=== PATIENT | female | born 1960 | race Caucasian/White ===

== ENCOUNTER 2025-01-01 10:05 | Emergency (ER) | payer MEDICARE, SELFPAY ==
[2025-01-01 10:17] VITALS: BP 150/100; PULSE 93; RESP 16; TEMP 36.6; O2SAT 100
[2025-01-01 10:21] LABS: Glucose Point of Care > 500 mg/dl (65-105)
--- OUTSIDE RECORDS SUMMARY | 2025-01-01 11:10 | XMS_ITS | Encounter Summary ---
Author Organization [facility] Address [address] [place] [address] Care Team Providers Care Hand Fabric Cutter Name Role Phone Nadine Walls PA-C Primary Care Provider Adolfo Su MD Unavailable Unavailable Shannan Acevedo PA-C Primary Care Prov ider Encounter Details Date Type Department Care Team (Late st Contact Info) Description 03/03/2021 Telephone [facility] - Family Medicine [address] [place] [address] Nadine Walls PA-C [address] [place] [address] Social History Tobacco Use Types Packs/Day Years Used Date Smoking Tobacco: Never Smokeless Tobacco: Never Alcohol Use Standard Drinks/Week Comments No 0 (1 standard drink = 0.6 oz pur e alcohol) Sex and Gender Information Value Date Recorded Sex Assigned at Female 09/09/2021 12:45 AM BANK ACCOUNTANT Gender Identity Female 09/09/2021 12:45 AM BANK ACCOUNTANT Sexual Orientation Straight 09/09/2021 12 :45 AM BANK ACCOUNTANT documented as of this encounter Miscellaneous Notes * Telephone Encounter - Cecilia Johnson LPN - 03/05/2021 11:59 AM CDT Pt notified that scripts have been sent to pharmacy. * Telephone Encounter - Nadine Walls PA-C - 03/04/2021 5:07 PM CDT Sonata increased to 10 mg and diazepam refilled. * Telephone Encounter - Vanessa Sarabia LPN - 03/03/2021 3:43 PM CDT Lillie Valentin called Requesting order for sonata 10mg, reports I do not take it every night but the 5mg does not work. I've been taking the 10mg for years. I also need refill of Diazepam 10mg C/o pain to lower back mostly but it also goes to my Right hip and at my right ankle-between my hip and ankle does not hurt. reports had an appt with Dr Catherine today but the office did not have me down for today so I got moved out. Th pain is awful please advise documented in this encounter Plan of Treatment Not on file documented as of this encounter Visit Diagnoses Diagnosis ARELIS (generalized anxiety disorder) Generalized anxiety disorder documented in this encounter Care Teams Hand Fabric Cutter Relationship Specialty Start Date End Date Nadine Walls PA-C [address] [place] [phone] PCP - General Physician Hemotherapist 09/07/19 09/21/22 Shannan Acevedo PA-C [facility] Primary Care [address] [place] [phone] PCP - General Physician Hemotherapist 09/22/22 Adolfo Su MD [address] [place] [phone] Internal Medicine 05/04/21 documented as of this encounter
--- OUTSIDE RECORDS SUMMARY | 2025-01-01 11:10 | XMS_ITS | Clinical Summary ---
Author Organization [facility] Address [address] [place] [address] Care Team Providers Care Seasonal Driver Name Role Phone Adolfo Su MD Primary Care Provider [phone] Allergies Active Allergy Reactions Criticality Noted Date Comments Ciprofloxacin Unknown Low Medications metFORMIN (GLUCOPHAGE) 500 mg tablet Take 500 mg by mouth 2 (two) times a day with meals Active DULoxetine DR (CYMBALTA) 60 mg capsule Take 60 mg by mouth daily Active lisinopriL (PRINIVIL,ZESTR [place]) 20 mg tablet Take 20 mg by mouth daily Active omeprazole (PriLOSEC) 20 mg capsule Take 20 mg by mouth daily Active acyclovir (ZOVIRAX) 200 mg capsule Take by mouth daily Active HYDROcodone-mirela taminophen (HYCET) 10-325 mg/15 mL(15 mL) solution Take 15 mL by mouth every 6 (six) hours as needed for moderate pain (pain scale 5-7) Active diazePAM (VALIUM) 10 mg tablet Take 10 mg by mouth every 6 (six) hours as needed for anxiety Active Active Problems Problem Noted Date Diagnosed Date Encounter for gynecological examination without abnormal finding 08/03/2020 Assessment & Plan (08/03/2020 4:35 PM CERTIFIED MEDICAL TRANSCRIPTIONIST): Pap smear and breast exam done. Schedule DEXA Return in one year. Candidal vulvovaginitis 08/03/2020 Assessment & Plan (08/03/2020 4:35 PM CERTIFIED MEDICAL TRANSCRIPTIONIST): Diflucan 150 po today and repeat in 3 days. 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 08/02/2019 Surgical History Surgery Date Site/Laterality Comments VAGINAL DELIVERY 09/26/1984 - 09/25/1985 TUBAL LIGATION APPENDECTOMY 07/27/1998 - 08/25/1998 CHOLECYSTECTOMY 02/24/1999 - 03/25/1999 CARPAL TUNNEL RELEASE 05/27/2000 - 06/25/2000 Right ENDOMETRIAL ABLATION W/ NOVASURE 06/14/2011 CYST REMOVAL 09/26/1997 - 09/25/1998 neck CERVICAL FUSION 08/31/2002 PARATHYROIDECTOMY 09/26/2004 - 09/25/2005 [facility] ACHILLES TENDON SURGERY 09/26/2015 - 09/25/2016 Bilateral debridment - [facility] ACHILLES TENDON SURGERY 09/26/2016 - 09/25/2017 Right retracted - 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 1985 Elective 1976 12 weeks Spontaneous 1978 6 weeks Fibromyalgia Family History Medical History Relation Name Comments Diabetes Father Diabetes Maternal Grandmother Heart disease Maternal Grandmother Heart disease Mother Hypertension Mother Colon cancer Paternal Grandmother Breast cancer Neg Hx Ovarian cancer Neg Hx Relation Name Status Comments Father Maternal Grandmother Mother Paternal Grandmother Social History Tobacco Use Types Packs/Day Years Used Date Smoking Tobacco: Never Smokeless Tobacco: Never Alcohol Use Standard Drinks/Week Comments Not Currently 0 (1 standard drink = 0.6 oz pur e alcohol) PHQ-2 Answer Date Recorded PHQ-2 Total Score (If total score is 3 or more points, staff should administer the PHQ-9) 0 07/28/2020 Personal Safety Answer Date Recorded Getting School Help Needed Not on file 12/09 Comments No Sex and Gender Information Value Date Recorded Sex Assigned at Not on file Legal Sex Female 1:37 PM CERTIFIED MEDICAL TRANSCRIPTIONIST Gender Identity Not on file Sexual Orientation Not on file 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 Not on file Not on file Not on file Obstetrics History Para Term AB IAB SAB Ectopic Multiple Livin g Live Births 3 1 1 2 1 1 1 1 Date Outcome GA Total Labor Labor/2nd/3rd Weight Sex Type Anes PTL Elaine A1 A5 Name Clin SAB IAB 1985 Term 3.345 kg (7 lb 6 oz) F Vag-S pont Maliha Complications:None Last Filed Vital Signs Vital Sign Reading Time Taken Comments Blood Pressure 124/82 07/28/2020 3:43 PM CERTIFIED MEDICAL TRANSCRIPTIONIST Pulse - - Temperature - - Respiratory Rate - - Oxygen Saturation - - Inhaled Oxygen Concentration - - Weight 88.5 kg (195 lb) 07/28/2020 3:43 PM CERTIFIED MEDICAL TRANSCRIPTIONIST Height 165.1 cm (5' 5 ) 07/28/2020 3:43 PM CERTIFIED MEDICAL TRANSCRIPTIONIST Body Mass Index 32.45 07/28/2020 3:43 PM CERTIFIED MEDICAL TRANSCRIPTIONIST Plan of Treatment Not on file Insurance CHOICE [facility] [place] [facility] [employer] Address: [address] [place] [address] [place] CHO[place] [employer] [place] Care Teams Seasonal Driver Relationship Specialty Start Date End Date Adolfo Su MD PCP - General 02/15/18
--- OUTSIDE RECORDS SUMMARY | 2025-01-01 11:10 | XMS_ITS | Clinical Summary ---
Author Organization [facility] Address [address] [place] [address] Care Team Providers Care Boomswing Operator Name Role Phone Shannan Acevedo PA-C Primary Care Prov ider Source Comments [facility],non-owned Affiliates and Associated Physician Practices is amultiple site organization consisting of ambulatory clinics and hospital sitesin [place], [place], [place]. This disclosure is being madepursuant to the Care Everywhere program and may not contain all information available regarding this patient. Last updated 18.[facility] Allergies Active Allergy Reactions Criticality Noted Date Comments Ciprofloxacin Other 09/07/2016 Vaginal irritation Gabapentin Unknown 10/26/2022 Pregabalin Other 05/24/2019 Suicidal thoughts when taking this drug. Oxycodone Dizziness 11/18/2021 Tizanidine Unknown 10/26/2022 Medications * Be aware that medications may not be up to date on this document. Alwaysverify current medications with the patient. Medication Sig Dispensed Refills Start Date End Date Status lancetsIndication s:Type 2 diabetes mellitus without complication, without long-term current use of insulin (HCC) Use 1 (one) Each once daily Type 2 diabetes mellitus without complication, without long-term current use of insulin [E11.9] 100 Each 06/03/2021 Active Multiple Vitamins-Minerals (WOMENS MULTI) CAPS Take by mouth once daily Active zaleplon (SONATA) 10 MG capsule TAKE 1 CAPSULE BY MOUTH ONCE DAILY AT BEDTIME NEEDED FOR INSOMNIA 30 capsule 1 12/01/2021 Active Additional Information Patient not taking.Reported on 01/19/2023 HYDROcodone-aceta minophen (NORCO) 10-325 MG tablet Take 1 (one) tablet by mouth every 8 hours as needed 12/10/2021 Active blood glucose test stripIndications: Type 2 diabetes mellitus without complication, without long-term current use of insulin (HCC) Use 1 (one) strip once daily Type 2 diabetes mellitus without complication, without long-term current use of insulin [E11.9] 50 strip 11 01/04/2022 Active DULoxetine (CYMBALTA) 60 MG capsuleIndication s:Depression with anxiety,Chronic pain syndrome Take 1 (one) capsule by mouth once daily 90 capsule 03/10/2022 Active glipiZIDE CR 24hr (GLUCOTROL XL) 10 MG tabletIndications :Type 2 diabetes mellitus without complication, with long-term current use of insulin (HCC) Take 1 (one) tablet by mouth daily with breakfast 90 tablet 1 03/10/2022 Active Additional Information Patient not taking.Reported on 08/15/2023 insulin glargine (Lantus/Semglee) 100 units/mL penIndications:Ty pe 2 diabetes mellitus without complication, with long-term current use of insulin ([facility]) Inject 15 (fifteen) Units subcutaneously at bedtime 15 mL 03/10/2022 Active Additional Information Patient taking differently: 20 UnitsSubcutaneous AT BEDTIME, Reported on 08/15/2023 Insulin Pen Needle (BD PEN NEEDLE MIRACLE U/F) 32G X 4 MM MISCIndications:T ype 2 diabetes mellitus without complication, with long-term current use of insulin ([facility]) Use 1 syringe once daily 100 Each 03/10/2022 Active lisinopril (PRINIVIL; ZESTRIL) 20 MG tabletIndications :Essential hypertension Take 1 (one) tablet by mouth once daily 90 tablet 1 03/10/2022 Active omeprazole (PRILOSEC) 20 MG capsuleIndication s:Gastroesophagea l reflux disease, unspecified whether esophagitis present Take 1 (one) capsule by mouth daily before breakfast 90 capsule 03/10/2022 Active semaglutide (Ozempic, 0.25 or 0.5 MG/DOSE,) 2 MG/1.5ML pen Inject 0.5 (one-half) mg subcutaneously every 7 days Active ezetimibe (Zetia) 10 MG tablet Take 1 (one) tablet by mouth once daily Active acyclovir (Zovirax) 200 MG capsuleIndication s:HSV infection Take 1 capsule by mouth once daily 30 capsule 03/23/2023 Active traZODone (Desyrel) 50 MG tablet Take 1 (one) tablet by mouth at bedtime Active diclofenac sodium (Voltaren) 1 % gel Apply 4 (four) g to affected area 4 times daily 100 g 3 08/15/2023 Active doxepin (SINEquan) 25 MG capsule Take 1 (one) capsule by mouth nightly as needed 30 capsule 5 07/26/2024 Active Active Problems Problem Noted Date Diagnosed Date Lumbar radiculopathy 10/06/2021 Right hip pain 08/31/2021 Right lumbar pain 08/31/2021 Sciatica of right side 08/31/2021 Stone of salivary duct 04/18/2021 Dental root caries 04/18/2021 Swelling of gums 04/18/2021 Pain in joint involving pelvic region and thigh 02/25/2021 Spasm of muscle 02/25/2021 Fall 02/25/2021 Strain of muscle, fascia and tendon of pelvis, initial encounter 02/25/2021 Lumbar strain, initial encounter 02/25/2021 Neck pain 02/25/2021 Type 2 diabetes mellitus wit hout complication, with long-term current use of insulin 09/07/2019 Essential hypertension 09/07/2019 Dyslipidemia 09/07/2019 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 08/02/2019 Heel pain, bilateral 09/07/2016 Achilles tendonitis, bilateral 09/07/2016 Resolved Problems Problem Noted Date Diagnosed Date Resolved Date Lumbar pain 08/02/2019 05/04/2021 Dorsalgia 11/01/2018 09/07/2019 Immunizations Name Administration Dates Next Due CovZayo primary monoval ent 12+ yr 0.3mL Purple cap 09/09/2021,12/13/2020,11/21/2020 INFLUENZA VACCINE 06/11/2020 Family History Medical History Relation Name Comments None Known Daughter None Known Father None Known Maternal Aunt None Known Maternal Grandmother None Known Mother None Known Other None Known Paternal Aunt None Known Paternal Grandmother None Known Sister None Known half-sister Cancer - Breast Neg Hx Cancer - Ovarian Neg Hx Relation Name Status Comments Daughter Father Alive Maternal Aunt Maternal Grandmother Mother Other Paternal Aunt Paternal Grandmother Sister half-sister Social History Tobacco Use Types Packs/Day Years Used Date Smoking Tobacco: Never Smokeless Tobacco: Never Tobacco Cessation:Counseling Given: Not Answered Alcohol Use Standard Drinks/Week Comments No 0 (1 standard drink = 0.6 oz pur e alcohol) AUDIT-C Answer Date Recorded Q1: How often do you have a drink containing alcohol? Never 08/05/2023 Q2: How many drinks containi ng alcohol do you have on a typical day when you are drinking? Patient does not drink Q3: How often do you have si x or more drinks on one occasion? Never 08/05/2023 PHQ-2 Answer Date Recorded Patient Health Questionnaire-2 Score 2 07/26/2024 Sex and Gender Information Value Date Recorded Sex Assigned at Female 09/09/2021 12:45 AM COMPUTATOR Gender Identity Female 09/09/2021 12:45 AM COMPUTATOR Sexual Orientation Straight 09/09/2021 12 :45 AM COMPUTATOR Last Filed Vital Signs Vital Sign Reading Time Taken Comments Blood Pressure 120/74 07/26/2024 10:16 AM CDT Pulse 79 07/26/2024 10:16 AM CDT Temperature 36.8 C (98.2 F) 07/26/2024 10:16 AM CDT Respiratory Rate 18 01/16/2024 10:09 AM CDT Oxygen Saturation 96% 07/26/2024 10:16 AM CDT Inhaled Oxygen Concentration - - Weight 82.1 kg (181 lb) 07/26/2024 10:16 AM CDT Height 165.1 cm (5' 5 ) 07/26/2024 10:16 AM CDT Body Mass Index 30.12 07/26/2024 10:16 AM CDT Plan of Treatment Health Maintenance Due Date Last Done Comments BONE DENSITY TESTING 1959 COLOGUARD (AGES 45-75) - COLON CA SCREENING 1959 CT COLONOGRAPHY - COLON CA SCREENING 1959 FIT - COLON CA SCREENING 1959 FLEX SIG - COLON CA SCREENING 1959 DTAP/TDAP/TD VACCINES (1 - Tdap) 1978 PNEUMOCOCCAL VACCINE 50+ (1 of 2 - PCV) 1978 ZOSTER VACCINE (1 of 2) 2009 Respiratory Syncytial Virus (RSV) Vaccine Pt: or over 60 yrs (1 - Risk 60-74 years 1-dose series) 2019 DIABETES-HGB A1C 09/09/2022 03/10/2022, , 07/30/2021, Additional history exists DIABETES-FOOT EXAM WITH MONOFILAMENT 12/01/2022 12/01/2021, 12/31/2020, 09/07/2019 PAP SMEAR 07/28/2023 07/28/2020 (Done Outside Per Report) DIABETES RETINOPATHY SCREENING 12/04/2023 12/03/2021 (Done Outside Per Patient), 08/12/2020 (Done Outside Per Report) COVID-19 VACCINE ( season) 2024 09/09/2021, 12/13/2020, 11/21/2020 DIABETES-SERUM CREATININE 08/05/20242022, 07/24/2023, 10/26/2022, Additional history exists DEPRESSION SCREENING 09/26/2024 01/16/2024, 08/15/2023, 08/05/2023, Additional history exists DIABETES - URINE PROTEIN SCREENING 09/26/2024 12/03/2021 INFLUENZA VACCINE (Season Ended) 2025 06/11/2020 MAMMOGRAM 01/22/2026 01/23/2024, 03/2022, 07/28/2020, Additional history exists COLON MONITORING 02/16/2031 02/16/2021 COLONOSCOPY - COLON CA SCREENING 02/16/2031 02/16/2021, 12/31/2010 (Done Outside Per Patient) Colorectal Cancer Screening 02/16/2031 DIABETES-STATIN Discontinued HEPATITIS B VACCINE Aged Out No longe r eligible based on patient's age to complete this topic HEPATITIS C SCREENING Discontinued HIB VACCINE Aged Out No longer eligi ble based on patient's age to complete this topic HIV SCREENING Discontinued HPV VACCINE Aged Out No longer eligi ble based on patient's age to complete this topic MENINGOCOCCAL (Group B) VACCINE SHARED DECISION-MAKING Aged Out No longer eligible based on patient's age to complete this topic MENINGOCOCCAL GROUPS A/C/Y/W VACCINE Aged Out No longer eligible based on patient's age to complete this topic Medical Devices Implanted Type Area Underliner Device Identifier Shelf Expiration Date Model / Serial / Lot Sys Spnl Fx 45mm 7mm Ifuse Impl Sys 3ang Implanted:Qty: 1 on 11/01/2022 by Michael Weston MD at [facility] Right: Sacral Iliac Joint [employer] 08/05/2026 7045M-90 / / [id number] Sys Spnl Fx 45mm 7mm Ifuse Impl Sys 3ang Implanted:Qty: 1 on 11/01/2022 by Michael Weston MD at [facility] Right: Sacral Iliac Joint [employer] 10/01/2026 7045M-90 / / [id number] Sys Spnl Fx 40mm 7mm Ifuse Impl Sys Implanted:Qty: 1 on 11/01/2022 by Michael Weston MD at [facility] Right: Sacral Iliac Joint [employer] 06/11/2026 7040M-90 / / [id number] Procedures Procedure Name Priority Date/Time Associated Diagnosis Comments MAMMO BILAT SCREENING W ALINA Routine 01/23/2024 2:46 PM CDT Visit for screening mammogram COMPREHENSIVE METABOLIC PANEL STAT 08/05/2023 4:49 AM COMPUTATOR HEMOGLOBIN A1C - POINT OF CARE (AMB) [facility] Routine 03/10/2022 Type 2 diabetes mellitus without complication, with long-term current use of insulin MICROALBUMIN URINE RANDOM Routine 12/03/2021 11:03 AM COMPUTATOR Well adult exam Type 2 diabetes mellitus without complication, without long-term current use of insulin from Last 3 Months or Most Recently Relevant to Health Maintenance Results * MAMMO BILAT SCREENING W ALINA (01/23/2024 2:46 PM CDT) Anatomical Region Laterality Modality Breast Bilateral Mammography 01/23/2024 3:16 PM CDT Narrative 01/23/2024 3:40 PM CDT DIGITAL MAMMOGRAM SCREENING BILATERAL WITH CAD CORRELATION 3-D DIGITAL TOMOSYNTHESIS DATE: 01/23/2024 2:46 PM PREVIOUS EXAM DATE: 08/02/2022 and previous HISTORY: Screening TECHNIQUE: Bilateral breast CC and MLO views. These images were interpreted with the aid of CAD. 3-D Digital Tomosynthesis was performed. TISSUE DENSITY: Scattered fibroglandular densities FINDINGS: There is new nodularity superolateral right breast on MLO view, increased nodularity lateral left breast on MLO view. Spot compression views recommended. Parenchymal pattern otherwise grossly unchanged. ASSESSMENT: Incomplete, BI-RADS 0 RECOMMENDATIONS: Spot compression views right and left breast The above findings should be correlated with physical examination. A relatively nonspecific study should not preclude additional evaluation if suspicious findings are present clinically. An [employer] certified facility. [facility] utilize gate5 as a reminder system to notify patients of their next recommended mammograms. > Interpreting Provider: Hossein Spring MD on 01/23/2024 3:40 PM Shannan Richard Quick PA-C MAMMO ORDPretty [facility] * (ABNORMAL) COMPREHENSIVE METABOLIC PANEL (08/05/2023 4:49 AM [facility]) Glucose 99 70 - 125 mg/dL 08/05/2023 5:17 AM [facility] Sodium 143 136 - 145 mmol/L 08/05/2023 5:17 AM [facility] Potassium 3.5 3.4 - 5.1 mmol/L 08/05/2023 5:17 AM [facility] Chloride 108(H) 98 - 107 mmol/L 08/05/2023 5:17 AM [facility] CO2 27 22 - 29 mmol/L 08/05/2023 5:17 AM [facility] Calcium 9.35 8.4 - 10.2 mg/dL 08/05/2023 5:17 AM [facility] Anion Gap 12 6 - 16 mmol/L 08/05/2023 5:17 AM [facility] BUN 14.8 9.8 - 20.1 mg/dL 08/05/2023 5:17 AM [facility] Creatinine 0.94 0.57 - 1.11 mg/dL 08/05/2023 5:17 AM [facility] Alkaline Phosphatase 87 40 - 150 U/L 08/05/2023 5:17 AM [facility] ALT 18 <=55 U/L 08/05/2023 5:17 AM [facility] AST 21 5 - 34 U/L 08/05/2023 5:17 AM [facility] Protein Total 6.6 6.4 - 8.3 gm/dL 08/05/2023 5:17 AM [facility] Albumin 3.8 3.4 - 4.8 gm/dL 08/05/2023 5:17 AM [facility] Globulin Total 2.8 2.6 - 4.0 gm/dL 08/05/2023 5:17 AM [facility] Albumin/Globulin Ratio 1.4 0.9 - 1.6 08/05/2023 5:17 AM [facility] Bilirubin Total 0.4 0.2 - 1.2 mg/dL 08/05/2023 5:17 AM [facility] eGFR 68(L) >90 mL/min/1.7 3m2 08/05/2023 5:17 AM [facility] Comment:The GFR result was c alculated using the updated CKD-EPI Creatinine Equation (2020). Blood BLOOD SPECIMEN / Unknown Venipuncture / Unknown 08/05/2023 4:49 AM COMPUTATOR 08/05/2023 4:54 AM COMPUTATOR Herb Buchanan MD LAB - CHEMISTRY OR DERABLES Performing Organization Address City/[facility]/ZIP Co de Phone Number [facility] [address] * (ABNORMAL) HEMOGLOBIN A1C - POINT OF CARE (AMB) [facility] (03/10/2022) [facility] Hemoglobin A1c POCT 7.6(A) 4.2 - 5.8 % [facility] QC Verified Yes Yes [facility] Blood BLOOD SPECIMEN / Unknown 03/10/2022 Nadine Walls PA-C LAB - POINT OF CARE ORDERABLES Performing Organization Address City/[facility] Co de Phone Number [facility] [address] [phone] * (ABNORMAL) MICROALBUMIN URINE RANDOM (12/03/2021 11:03 AM COMPUTATOR) [facility] Microalbumin Urine 100.0(H) 0.0 - 20.0 mg/dL 12/03/2021 1:32 PM COMPUTATOR [facility] Urine URINE SPECIMEN OBTAINED BY CLEAN CATCH PROCEDURE / Unknown Collection / Unknown 12/03/2021 11:03 AM COMPUTATOR 12/03/2021 12:48 PM COMPUTATOR Nadine Walls PA-C LAB - URINE CHEMISTR Y ORDERABLES [facility] [address] [place] [address], [place] from Last 3 Months or Most Recently Relevant to Health Maintenance Care Teams Boomswing Operator Relationship Specialty Start Date End Date Shannan Acevedo PA-C [facility] Primary Care [address] [place] [phone] PCP - General Physician Sample Carrier 09/22/22
--- OUTSIDE RECORDS SUMMARY | 2025-01-01 11:10 | XMS_ITS | Referral Summary ---
Author Organization [facility] C Address [address] [place] [address] Care Team Providers Care Group Supervisor Yard Name Role Phone Adolfo Su MD Primary Care Provider [phone] Allergies Active Allergy Reactions Criticality Noted Date [...] 08/03/2020 Assessment & Plan (08/03/2020 4:35 PM SCOREKEEPER): Pap smear and breast exam done. Schedule DEXA Return in one year. Candidal vulvovaginitis 08/03/2020 Assessment & Plan (08/03/2020 4:35 PM SCOREKEEPER): Diflucan 150 po today and repeat in 3 days. 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 Not on file Not on file Not on file Last Filed Vital Signs Vital Sign Reading Time Taken Comments Blood Pressure 124/82 07/28/2020 3:43 PM SCOREKEEPER Pulse - - Temperature - - Respiratory Rate - - Oxygen Saturation - - Inhaled Oxygen Concentration - - Weight 88.5 kg (195 lb) 07/28/2020 3:43 PM SCOREKEEPER Height 165.1 cm (5' 5 ) 07/28/2020 3:43 PM SCOREKEEPER Body Mass Index 32.45 07/28/2020 3:43 PM SCOREKEEPER Plan of Treatment Not on file Insurance [employer] [place]PO [place] Member Subscriber Plan / Payer (Ef fective 2019-Present) Name:Kanchan Marie Relation to Subscriber:Self Name:Kanchan Marie Payer ID:[id number] (NAIC) Type:HEALTHCARE/EXCHANGE Address: [address] [place] [phone] [employer] Address: [address] [place] [address] [facility] PPO [place] Care Teams Group Supervisor Yard Relationship Specialty Start Date End Date Adolfo Su MD [facility] - General 02/15/18
--- NOTE | 2025-01-01 11:16 | ED_ITS ---
HPI - Recheck/Abnormal Lab/Rx General Chief Complaint: Recheck/Abnormal Lab/Rx <Dinorah Bond PA-C - Last Filed: 01/01/25 18:03> Stated Complaint: weak, blurred vision <Dinorah Bond PA-C - Last Filed: 01/01/25 18:03> Time Seen by Provider: 01/01/25 11:16 <Dinorah Bond PA-C - Last Filed: 01/01/25 18:03> Focused HPI: This is a 64 year old female that presents to the ER for high blood sugar. Reports she has been out of her Ozempic for about 3 months. Reports weakness, blurred vision. Reports her doctor retired and she has not been able to get a new one to get her medications refilled. GENERAL: Well-appearing, well-nourished, and in no acute distress. HEAD: Normocephalic, atraumatic. CHEST: No respiratory distress. HEART: Regular rate NEURO: ?Alert and oriented x3. Patient screened in triage and initial orders placed.? ?Additional care and disposition to be based upon?diagnostic testing and treatment. <Dinorah Bond PA-C - Last Filed: 01/01/25 18:03> History of Present Illness HPI narrative: Agree with HPI. Reports she has follow-up with a PCP scheduled in the near future. Increased thirst and urination. No fevers or chills. Blood sugars been 400/couple days and her daughter told her she needed to be evaluated. <Luis Mukherjee MD - Last Filed: 01/01/25 16:11> Related Data Home Medications: Home Medications ?Medication ?Instructions ?Recorded ?Confirmed ?Last Taken ?Type acyclovir 200 mg capsule 200 mg PO DAILY 05/08/24 Unknown History duloxetine 60 mg capsule,delayed 60 mg PO DAILY 05/08/24 Unknown History release (Cymbalta) ezetimibe 10 mg tablet (Zetia) 10 mg PO DAILY 05/08/24 Unknown History hydrocodone 10 mg-acetaminophen 1 tablet PO QHS PRN 05/08/24 Unknown History 325 mg tablet lisinopril 20 mg tablet 20 mg PO DAILY 05/08/24 Unknown History omeprazole 20 mg capsule,delayed 20 mg PO DAILY 05/08/24 Unknown History release ondansetron HCl 8 mg tablet 8 mg PO Q12H 05/08/24 Unknown History semaglutide 1 mg/dose (2 mg/1.5 1 mg subcut WEEKLY 05/08/24 Unknown History mL) subcutaneous pen injector <Dinorah Bond PA-C - Last Filed: 01/01/25 18:03> Allergies/Adverse Reactions: Allergies Allergy/AdvReac Type Severity Reaction Status Date / Time ciprofloxacin (From Cipro) Allergy vagina Verified 05/08/24 14:45 irritation oxycodone Allergy loopy Verified 05/08/24 14:45 feeling pregabalin (From Lyrica) Allergy Unknown Verified 05/08/24 14:45 <Dinorah Bond PA-C - Last Filed: 01/01/25 18:03> Review of Systems 2 Review of Systems: All systems reviewed & are unremarkable except as noted in HPI and below <Luis Mukherjee MD - Last Filed: 01/01/25 16:11> Constitutional: Constitutional: Reports no additional constitutional complaints <Luis Mukherjee MD - Last Filed: 01/01/25 16:11> Eyes: Eyes: Reports no additional eye complaints <Luis Mukherjee MD - Last Filed: 01/01/25 16:11> ENT: Reports system reviewed and no additional complaints, except as documented <Luis Mukherjee MD - Last Filed: 01/01/25 16:11> Cardiovascular: Cardiovascular: Reports no additional cardiovascular complaints <Luis Mukherjee MD - Last Filed: 01/01/25 16:11> Respiratory: Respiratory: Reports no additional respiratory complaints < Luis Mukherjee MD - Last Filed: 01/01/25 16:11> Endocrine: Endocrine: Reports no additional endocrine complaints <Luis Mukherjee MD - Last Filed: 01/01/25 16:11> [facility] Past Medical History Medical History: Medical History (Updated 01/01/25 @ 18:03 by Dinorah Bond PA-C) HTN (hypertension) Headache GERD (gastroesophageal reflux disease) Diabetes Anxiety <Dinorah Bond PA-C - Last Filed: 01/01/25 18:03> Surgical History Surgical History: Surgical History (Updated 05/08/24 @ 14:44 by Melissa Parker CMA) Hx of fusion of cervical spine History of cholecystectomy <Dinorah Bond PA-C - Last Filed: 01/01/25 18:03> Family History Family History: Family History Father Diabetes mellitus Colon cancer Mother Hypertension Diabetes mellitus Grandparent Diabetes mellitus Heart disease <Dinorah Bond PA-C - Last Filed: 01/01/25 18:03> Social History Social History: Social History (Updated 05/08/24 @ 14:47 by Melissa Parker [facility]) Smoking status: Never smoker Alcohol intake: current Alcohol use details: a few drinks per week Substance use: never Substance use type: does not use Do You Feel Safe in your Home?: Yes Lack of Transportation: No Lack of Food: Sometimes True Current Housing: I Have Housing Concerned About Future Housing: No Difficulty Paying Gas/Electric Bills: No Difficulty Paying for Meds: No Currently Unemployed: No Education: Associate Degree Difficulty w/ Childcare or Family Care: No <Dinorah Bond PA-C - Last Filed: 01/01/25 18:03> Exam 2 Narrative: GENERAL: Well-appearing, well-nourished, and in no acute distress. HEAD: Normocephalic, atraumatic. ENT: Mucous membranes moist. CHEST: Clear to auscultation. No respiratory distress. HEART: Regular rate and rhythm. Normal peripheral pulses. ABDOMEN: Soft, nontender, nondistended. EXTREMITIES: Normal range of motion. No edema. SKIN: Warm, dry, no rash. NEURO: Alert and oriented x3. PSYCH: Normal mood and affect. <Luis Mukherjee MD - Last Filed: 01/01/25 16:11> Course Course Emergency Course: Patient resting comfortably. Informed results. Blood sugar decreased appropriately with IV fluid. Will start her on metformin that was gracia follow- up with her PCP and get insurance approval to restart Ozempic. She is comfortable with this plan. Discussed titration up from 500 mg twice a day to 1000 mg twice a day over the next 2 weeks. <Luis Mukherjee MD - Last Filed: 01/01/25 16:11> Vital Signs Vital signs: Vital Signs Temperature 97.8 F 01/01/25 10:17 Pulse Rate 93 01/01/25 10:17 Respiratory Rate 16 01/01/25 10:17 Blood Pressure 150/100 H 01/01/25 10:17 Pulse Oximetry 100 01/01/25 10:17 Oxygen Delivery Room Air 01/01/25 10:17 Temperature 97.8 F 01/01/25 10:17 Pulse Rate 74 01/01/25 13:29 Respiratory Rate 18 01/01/25 13:29 Blood Pressure 125/87 01/01/25 13:29 Pulse Oximetry 100 01/01/25 13:29 Oxygen Delivery Room Air 01/01/25 10:17 <Dinorah Bond PA-C - Last Filed: 01/01/25 18:03> Vital Signs Temperature 97.8 F 01/01/25 10:17 Pulse Rate 93 01/01/25 10:17 Respiratory Rate 16 01/01/25 10:17 Blood Pressure 150/100 H 01/01/25 10:17 Pulse Oximetry 100 01/01/25 10:17 Oxygen Delivery Room Air 01/01/25 10:17 Temperature 97.8 F 01/01/25 10:17 Pulse Rate 74 01/01/25 13:29 Respiratory Rate 18 01/01/25 13:29 Blood Pressure 125/87 01/01/25 13:29 Pulse Oximetry 100 01/01/25 13:29 Oxygen Delivery Room Air 01/01/25 10:17 <Luis Mukherjee MD - Last Filed: 01/01/25 16:11> MDM - Recheck/Abnormal Lab/Rx Lab Data Result diagrams: 01/01/25 11:31 01/01/25 11:31 <Dinorah Bond PA-C - Last Filed: 01/01/25 18:03> Labs: Lab Results 01/01/25 01/01/25 01/01/25 Range/Units 10:18 11:29 11:31 WBC 9.1 (4.5-10.0) K/mm3 RBC 4.29 (4.2-5.4) M/mm3 Hgb 11.6 L (12.0-15.0) g/dL Hct 36.2 L (37.0-47.0) % MCV 84.4 (80-100) fl MCH 27.0 (26-34) pg MCHC 32.0 (32-36) g/dl RDW 13.2 (11.5-14.5) % Plt Count 211 (150-375) k/mm3 MPV 10.0 (7.4-10.4) fl Immature Gran % (Auto) 0.5 (0-0.5) % Neut % (Auto) 81.2 H (45.5-73.1) % Lymph % (Auto) 11.6 L (18.3-44.2) % [place] % (Auto) 4.5 (2.6-8.5) % Eos % (Auto) 2.0 (0-4.4) % Baso % (Auto) 0.2 (0.2-1.2) % Lymph # (Auto) 1.06 (0.9-3.2) K/mm3 [place] # (Auto) 0.4 (0.1-0.6) K/mm3 Eos # (Auto) 0.2 (0-0.3) K/mm3 Baso # (Auto) 0.0 (0.0-0.1) K/mm3 Abs Immat Gran (auto) 0.05 H (0.00-0.031) K/mm3 Absolute Neuts (auto) 7.4 H (1.3-6.7) K/mm3 Absolute Nucleated RBC 0.000 (0.0-0.012) K/mm3 Nucleated RBC % 0.0 (0.0-0.2) % Sodium 132 L (137-145) mmol/L Potassium 4.7 (3.4-5.0) mmol/L Chloride 97 L (98-107) mmol/L Carbon Dioxide 24 (22-30) mmol/L Anion Gap 11 (4-12) mmol/L BUN 28 H (7-17) mg/dL Creatinine 0.94 (0.7-1.0) mg/dL Estim Creat Clear Calc 59 ml/min Estimated GFR 60 (59 - ) Glucose 512 H* (65-110) mg/dL POC Capillary Glucose > 500 H* 498 H (65-105) mg/dl Calcium 8.8 (8.4-10.2) mg/dL Phosphorus 4.1 (2.5-4.5) mg/dL Magnesium 1.7 (1.6-2.3) mg/dL Total Bilirubin 0.6 (0.2-1.3) mg/dL AST 23 (14-36) U/L ALT 24 (6-35) U/L Alkaline Phosphatase 181 H (38-126) U/L Total Protein 7.0 (6.3-8.2) g/dL Albumin 4.2 (3.5-5.1) g/dL Beta-Hydroxybutyrate/Acetoacetate 0.07 (0.02-0.27) mmol/L Urine Color (Yellow) Urine Appearance (Clear) Urine pH (5.0-9.0) Ur Specific [place] (1.001-1.035) Urine Protein (Negative) mg/dL Urine Glucose (UA) (Negative) mg/dL Urine Ketones (Negative) mg/dL Ur Blood (Man) (Negative) Urine Nitrate (Negative) Urine Bilirubin (Negative) Urine Urobilinogen (<2.0) mg/dL Leukocyte Esterase Rfl (Negative) KLEBER/UL 01/01/25 01/01/25 Range/Units 11:39 14:13 WBC (4.5-10.0) K/mm3 RBC (4.2-5.4) M/mm3 Hgb (12.0-15.0) g/dL Hct (37.0-47.0) % MCV (80-100) fl MCH (26-34) pg MCHC (32-36) g/dl RDW (11.5-14.5) % Plt Count (150-375) k/mm3 MPV (7.4-10.4) fl Immature Gran % (Auto) (0-0.5) % Neut % (Auto) (45.5-73.1) % Lymph % (Auto) (18.3-44.2) % [place] % (Auto) (2.6-8.5) % Eos % (Auto) (0-4.4) % Baso % (Auto) (0.2-1.2) % Lymph # (Auto) (0.9-3.2) K/mm3 [place] # (Auto) (0.1-0.6) K/mm3 Eos # (Auto) (0-0.3) K/mm3 Baso # (Auto) (0.0-0.1) K/mm3 Abs Immat Gran (auto) (0.00-0.031) K/mm3 Absolute Neuts (auto) (1.3-6.7) K/mm3 Absolute Nucleated RBC (0.0-0.012) K/mm3 Nucleated RBC % (0.0-0.2) % Sodium (137-145) mmol/L Potassium (3.4-5.0) mmol/L Chloride (98-107) mmol/L Carbon Dioxide (22-30) mmol/L Anion Gap (4-12) mmol/L BUN (7-17) mg/dL Creatinine (0.7-1.0) mg/dL Estim Creat Clear Calc ml/min Estimated GFR (59 - ) Glucose (65-110) mg/dL POC Capillary Glucose 290 H (65-105) mg/dl Calcium (8.4-10.2) mg/dL Phosphorus (2.5-4.5) mg/dL Magnesium (1.6-2.3) mg/dL Total Bilirubin (0.2-1.3) mg/dL AST (14-36) U/L ALT (6-35) U/L Alkaline Phosphatase (38-126) U/L Total Protein (6.3-8.2) g/dL Albumin (3.5-5.1) g/dL Beta-Hydroxybutyrate/Acetoacetate (0.02-0.27) mmol/L Urine Color Yellow (Yellow) Urine Appearance Clear (Clear) Urine pH 5.0 (5.0-9.0) Ur Specific [place] 1.034 (1.001-1.035) Urine Protein Negative (Negative) mg/dL Urine Glucose (UA) 3+ H (Negative) mg/dL Urine Ketones Negative (Negative) mg/dL Ur Blood (Man) Negative (Negative) Urine Nitrate Negative (Negative) Urine Bilirubin Negative (Negative) Urine Urobilinogen 0.2 (<2.0) mg/dL Leukocyte Esterase Rfl Negative (Negative) KLEBER/UL <Dinorah Bond PA-C - Last Filed: 01/01/25 18:03> Lab Results 01/01/25 01/01/25 01/01/25 Range/Units 10:18 11:29 11:31 WBC 9.1 (4.5-10.0) K/mm3 RBC 4.29 (4.2-5.4) M/mm3 Hgb 11.6 L (12.0-15.0) g/dL Hct 36.2 L (37.0-47.0) % MCV 84.4 (80-100) fl MCH 27.0 (26-34) pg MCHC 32.0 (32-36) g/dl RDW 13.2 (11.5-14.5) % Plt Count 211 (150-375) k/mm3 MPV 10.0 (7.4-10.4) fl Immature Gran % (Auto) 0.5 (0-0.5) % Neut % (Auto) 81.2 H (45.5-73.1) % Lymph % (Auto) 11.6 L (18.3-44.2) % [place] % (Auto) 4.5 (2.6-8.5) % Eos % (Auto) 2.0 (0-4.4) % Baso % (Auto) 0.2 (0.2-1.2) % Lymph # (Auto) 1.06 (0.9-3.2) K/mm3 [place] # (Auto) 0.4 (0.1-0.6) K/mm3 Eos # (Auto) 0.2 (0-0.3) K/mm3 Baso # (Auto) 0.0 (0.0-0.1) K/mm3 Abs Immat Gran (auto) 0.05 H (0.00-0.031) K/mm3 Absolute Neuts (auto) 7.4 H (1.3-6.7) K/mm3 Absolute Nucleated RBC 0.000 (0.0-0.012) K/mm3 Nucleated RBC % 0.0 (0.0-0.2) % Sodium 132 L (137-145) mmol/L Potassium 4.7 (3.4-5.0) mmol/L Chloride 97 L (98-107) mmol/L Carbon Dioxide 24 (22-30) mmol/L Anion Gap 11 (4-12) mmol/L BUN 28 H (7-17) mg/dL Creatinine 0.94 (0.7-1.0) mg/dL Estim Creat Clear Calc 59 ml/min Estimated GFR 60 (59 - ) Glucose 512 H* (65-110) mg/dL POC Capillary Glucose > 500 H* 498 H (65-105) mg/dl Calcium 8.8 (8.4-10.2) mg/dL Phosphorus 4.1 (2.5-4.5) mg/dL Magnesium 1.7 (1.6-2.3) mg/dL Total Bilirubin 0.6 (0.2-1.3) mg/dL AST 23 (14-36) U/L ALT 24 (6-35) U/L Alkaline Phosphatase 181 H (38-126) U/L Total Protein 7.0 (6.3-8.2) g/dL Albumin 4.2 (3.5-5.1) g/dL Beta-Hydroxybutyrate/Acetoacetate 0.07 (0.02-0.27) mmol/L Urine Color (Yellow) Urine Appearance (Clear) Urine pH (5.0-9.0) Ur Specific [place] (1.001-1.035) Urine Protein (Negative) mg/dL Urine Glucose (UA) (Negative) mg/dL Urine Ketones (Negative) mg/dL Ur Blood (Man) (Negative) Urine Nitrate (Negative) Urine Bilirubin (Negative) Urine Urobilinogen (<2.0) mg/dL Leukocyte Esterase Rfl (Negative) KLEBER/UL 01/01/25 01/01/25 Range/Units 11:39 14:13 WBC (4.5-10.0) K/mm3 RBC (4.2-5.4) M/mm3 Hgb (12.0-15.0) g/dL Hct (37.0-47.0) % MCV (80-100) fl MCH (26-34) pg MCHC (32-36) g/dl RDW (11.5-14.5) % Plt Count (150-375) k/mm3 MPV (7.4-10.4) fl Immature Gran % (Auto) (0-0.5) % Neut % (Auto) (45.5-73.1) % Lymph % (Auto) (18.3-44.2) % [place] % (Auto) (2.6-8.5) % Eos % (Auto) (0-4.4) % Baso % (Auto) (0.2-1.2) % Lymph # (Auto) (0.9-3.2) K/mm3 [place] # (Auto) (0.1-0.6) K/mm3 Eos # (Auto) (0-0.3) K/mm3 Baso # (Auto) (0.0-0.1) K/mm3 Abs Immat Gran (auto) (0.00-0.031) K/mm3 Absolute Neuts (auto) (1.3-6.7) K/mm3 Absolute Nucleated RBC (0.0-0.012) K/mm3 Nucleated RBC % (0.0-0.2) % Sodium (137-145) mmol/L Potassium (3.4-5.0) mmol/L Chloride (98-107) mmol/L Carbon Dioxide (22-30) mmol/L Anion Gap (4-12) mmol/L BUN (7-17) mg/dL Creatinine (0.7-1.0) mg/dL Estim Creat Clear Calc ml/min Estimated GFR (59 - ) Glucose (65-110) mg/dL POC Capillary Glucose 290 H (65-105) mg/dl Calcium (8.4-10.2) mg/dL Phosphorus (2.5-4.5) mg/dL Magnesium (1.6-2.3) mg/dL Total Bilirubin (0.2-1.3) mg/dL AST (14-36) U/L ALT (6-35) U/L Alkaline Phosphatase (38-126) U/L Total Protein (6.3-8.2) g/dL Albumin (3.5-5.1) g/dL Beta-Hydroxybutyrate/Acetoacetate (0.02-0.27) mmol/L Urine Color Yellow (Yellow) Urine Appearance Clear (Clear) Urine pH 5.0 (5.0-9.0) Ur Specific [place] 1.034 (1.001-1.035) Urine Protein Negative (Negative) mg/dL Urine Glucose (UA) 3+ H (Negative) mg/dL Urine Ketones Negative (Negative) mg/dL Ur Blood (Man) Negative (Negative) Urine Nitrate Negative (Negative) Urine Bilirubin Negative (Negative) Urine Urobilinogen 0.2 (<2.0) mg/dL Leukocyte Esterase Rfl Negative (Negative) KLEBER/UL <Luis Mukherjee MD - Last Filed: 01/01/25 16:11> Critical Care Time Critical Care Time Critical Care Time: No <Dinorah Bond PA-C - Last Filed: 01/01/25 18:03> Discharge Plan Discharge Clinical Impression: Uncontrolled diabetes mellitus Qualifiers: Diabetes mellitus type: type 2 Glycemic state: with hyperglycemia Qualified Code(s): E11.65 - Type 2 diabetes mellitus with hyperglycemia <Dinorah Bond PA-C - Last Filed: 01/01/25 18:03> Patient Disposition: Home <Dinorah Bond PA-C - Last Filed: 01/01/25 18:03> Condition: Stable <Dinorah Bond PA-C - Last Filed: 01/01/25 18:03> Instructions: Diabetic Hyperglycemia (ED) <Dinorah Bond PA-C - Last Filed: 01/01/25 18:03> Additional Instructions: Return the ER if you have fever 100.4? F, he cannot keep down food water, you lose consciousness, or have additional concerns. <Dinorah Bond PA-C - Last Filed: 01/01/25 18:03> Patient Language: German <Dinorah Bond PA-C - Last Filed: 01/01/25 18:03> Prescriptions: New metformin 500 mg tablet 1,000 mg PO BIDWMEAL Qty: 30 0RF No Action omeprazole 20 mg capsule,delayed release(DR/EC) 20 mg PO DAILY ezetimibe [Zetia] 10 mg tablet 10 mg PO DAILY lisinopril 20 mg tablet 20 mg PO DAILY duloxetine [Cymbalta] 60 mg capsule,delayed release(DR/EC) 60 mg PO DAILY acyclovir 200 mg capsule 200 mg PO DAILY ondansetron HCl 8 mg tablet 8 mg PO Q12H hydrocodone-acetaminophen 10-325 mg tablet 1 tablet PO QHS PRN semaglutide 1 mg/dose (2 mg/1.5 mL) pen injector 1 mg subcut WEEKLY <Dinorah Bond PA-C - Last Filed: 01/01/25 18:03> Follow-up/Referrals: PHYSICIAN,MANAGER COMPENSATION [Non-Staff] - Pedro Chandra MD [Physician] - 1 Week <Dinorah Bond PA-C - Last Filed: 01/01/25 18:03>
[2025-01-01 11:35] LABS: Glucose Point of Care 498 mg/dl (65-105)
[2025-01-01 11:44] LABS: Basophils Percent Auto 0.2 % (0.2-1.2); Eosinophils Absolute Auto 0.2 K/mm3 (0-0.3); Hematocrit 36.2 % (37.0-47.0); Hemoglobin 11.6 g/dL (12.0-15.0); Immature Granulocyte Absolute 0.05 K/mm3 (0.00-0.031); Immature Granulocyte Percent A 0.5 % (0-0.5); Lymphocytes Absolute Auto 1.06 K/mm3 (0.9-3.2); Lymphocytes Percent Auto 11.6 % (18.3-44.2); Mean Corpuscular Volume 84.4 fl (80-100); Monocytes Absolute Auto 0.4 K/mm3 (0.1-0.6); Monocytes Percent Auto 4.5 % (2.6-8.5); Neutrophils Absolute Auto 7.4 K/mm3 (1.3-6.7); Neutrophils Percent Auto 81.2 % (45.5-73.1); Platelet Count Result 211 k/mm3 (150-375); Red Blood Count 4.29 M/mm3 (4.2-5.4); Red Cell Distribution Width 13.2 % (11.5-14.5); White Blood Count 9.1 K/mm3 (4.5-10.0)
[2025-01-01 11:47] LABS: Add Urine Microscopic? NO; Appearance Urine Clear (Clear); Bilirubin Urine Negative (Negative); Blood Urine Negative (Negative); Color Urine Yellow (Yellow); Glucose Urine UA 3+ mg/dL (Negative); Ketones Urine Negative (Negative); Leukocyte Esterase Ur Negative LEU/UL (Negative); Nitrate Urine Negative (Negative); Protein Urine Negative (Negative); Specific Grav Ur 1.034 (1.001-1.035); Urobilinogen Urine 0.2 mg/dL (<2.0)
[2025-01-01 12:01] LABS: Beta-Hydroxybutyrate/Acetoacetate 0.07 mmol/L (0.02-0.27)
[2025-01-01 12:15] LABS: Alanine Aminotransferase 24 U/L (6-35); Albumin Level 4.2 g/dL (3.5-5.1); Alkaline Phosphatase 181 U/L (38-126); Anion Gap 11 mmol/L (4-12); Aspartate Amino Transferase 23 U/L (14-36); Bilirubin,Total 0.6 mg/dL (0.2-1.3); Blood Urea Nitrogen 28 mg/dL (7-17); Calcium 8.8 mg/dL (8.4-10.2); Carbon Dioxide 24 mmol/L (22-30); Chloride 97 mmol/L (98-107); Estimated CRCL calculation 59 ml/min; Estimated Glomerular Filt Rate 60; Glucose 512 mg/dL (65-110); Magnesium 1.7 mg/dL (1.6-2.3); Phosphorus 4.1 mg/dL (2.5-4.5); Potassium 4.7 mmol/L (3.4-5.0); Sodium 132 mmol/L (137-145)
[2025-01-01] MEDS: SODIUM CHLORIDE 0.9% IV 1,000 ML 999 ML IV CONT ×2 (12:18→13:28)
--- OUTSIDE RECORDS SUMMARY | 2025-01-01 12:51 | XMS_ITS | Referral Summary ---
Author Organization [facility] C Address [address] [place] [address] Care Team Providers Care Ticket Dispenser Changer Name Role Phone Adolfo Su MD Primary Care Provider [phone] Allergies Active Allergy Reactions Criticality Noted Date [...] 08/03/2020 Assessment & Plan (08/03/2020 4:35 PM TOUCHER UP): Pap smear and breast exam done. Schedule DEXA Return in one year. 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 Not on file Not on file Not on file Last Filed Vital Signs Vital Sign Reading Time Taken Comments Blood Pressure 124/82 07/28/2020 3:43 PM TOUCHER UP Pulse - - Temperature - - Respiratory Rate - - Oxygen Saturation - - Inhaled Oxygen Concentration - - Weight 88.5 kg (195 lb) 07/28/2020 3:43 PM TOUCHER UP Height 165.1 cm (5' 5 ) 07/28/2020 3:43 PM TOUCHER UP Body Mass Index 32.45 07/28/2020 3:43 PM TOUCHER UP Plan of Treatment Not on file Insurance [employer] PRF [place]PO [place] Member Subscriber Plan / Payer (Ef fective 2019-Present) Name:Kanchan Marie Relation to Subscriber:Self Name:Kanchan Marie Payer ID:[id number] (NAIC) Type:HEALTHCARE/EXCHANGE Address: [address] [place] [phone] [employer] Address: [address] [place] [address] [facility] PPO [place] Care Teams Ticket Dispenser Changer Relationship Specialty Start Date End Date Adolfo Su MD [facility] - General 02/15/18
--- OUTSIDE RECORDS SUMMARY | 2025-01-01 12:51 | XMS_ITS | Encounter Summary ---
Author Organization [facility] Address [address] [place] [address] Care Team Providers Care Events And Promotions Assistant Name Role Phone Nadine Walls PA-C Primary Care Provider [phone] Adolfo Su MD Unavailable Unavailable Shannan Acevedo PA-C Primary Care Prov ider Encounter Details Date Type Department Care Team (Late st Contact Info) Description 03/03/2021 Telephone [facility] - Family Medicine [address] [place] [address] Nadine Walls PA-C [address] [place] [address] Social History Tobacco Use Types Packs/Day Years Used Date Smoking Tobacco: Never Smokeless Tobacco: Never Alcohol Use Standard Drinks/Week Comments No 0 (1 standard drink = 0.6 oz pur e alcohol) Sex and Gender Information Value Date Recorded Sex Assigned at Female 09/09/2021 12:45 AM ADMINISTRATION SPECIALIST Gender Identity Female 09/09/2021 12:45 AM ADMINISTRATION SPECIALIST Sexual Orientation Straight 09/09/2021 12 :45 AM ADMINISTRATION SPECIALIST documented as of this encounter Miscellaneous Notes [...] disorder documented in this encounter Care Teams Events And Promotions Assistant Relationship Specialty Start Date End Date Nadine Walls PA-C [address] [place] [phone] PCP - General Physician Director Of Pediatric Rehabilitation 09/07/19 09/21/22 Shannan Acevedo PA-C [facility] Primary Care [address] [place] [phone] PCP - General Physician Director Of Pediatric Rehabilitation 09/22/22 Adolfo Su MD [address] [place] [phone] Internal Medicine 05/04/21 documented as of this encounter
--- OUTSIDE RECORDS SUMMARY | 2025-01-01 12:51 | XMS_ITS | Clinical Summary ---
Author Organization [facility] Address [address] [place] [address] Care Team Providers Care Pelletising Extruder Operator Name Role Phone Shannan Acevedo PA-C Primary Care Prov ider Source Comments [facility],non-owned Affiliates and Associated Physician Practices is amultiple site organization consisting of ambulatory clinics and hospital sitesin [place], [place], [place] and [place]. This disclosure is being madepursuant to the Care Everywhere program and may not contain all information available regarding this patient. Last updated 18.[facility] Allergies Active Allergy Reactions Criticality Noted Date [...] complication, with long-term current use of insulin ([facility]) Inject 15 (fifteen) Units subcutaneously at bedtime 15 mL 03/10/2022 Active Additional Information Patient taking differently: 20 UnitsSubcutaneous AT BEDTIME, Reported on 08/15/2023 Insulin Pen Needle (BD PEN NEEDLE MIRACLE U/F) 32G X 4 MM MISCIndications:T ype 2 diabetes mellitus without complication, with long-term current use of insulin ([facility]) Use 1 syringe once daily 100 [...] 09/07/2019 Immunizations Name Administration Dates Next Due [employer] primary monoval ent 12+ yr 0.3mL Purple [...] Sex Assigned at Female 09/09/2021 12:45 AM ROUGH AND TRUING MACHINE OPERATOR Gender Identity Female 09/09/2021 12:45 AM ROUGH AND TRUING MACHINE OPERATOR Sexual Orientation Straight 09/09/2021 12 :45 AM ROUGH AND TRUING MACHINE OPERATOR Last Filed Vital Signs Vital Sign Reading [...] this topic Medical Devices Implanted Type [employer] Device Identifier Shelf Expiration Date Model / Serial / Lot Sys Spnl Fx 45mm 7mm Ifuse Impl Sys 3ang Implanted:Qty: 1 on 11/01/2022 by Michael Weston MD at [facility] Right: Sacral Iliac Joint [employer] 08/05/2026 7045M-90 / / [id number] Sys Spnl Fx 45mm 7mm Ifuse Impl Sys 3ang Implanted:Qty: 1 on 11/01/2022 by Michael Weston MD at [facility] Right: Sacral Iliac Joint [employer] 10/01/2026 7045M-90 / / [id number] Sys Spnl Fx 40mm 7mm Ifuse Impl Sys Implanted:Qty: 1 on 11/01/2022 by Michael Weston MD at [facility] Right: Sacral Iliac Joint [employer] 06/11/2026 7040M-90 / / [id number] Procedures Procedure Name Priority Date/Time Associated Diagnosis Comments MAMMO BILAT SCREENING W ALINA Routine 01/23/2024 2:46 PM CDT Visit for screening mammogram COMPREHENSIVE METABOLIC PANEL STAT 08/05/2023 4:49 AM ROUGH AND TRUING MACHINE OPERATOR HEMOGLOBIN A1C - POINT OF CARE (AMB) [facility] Routine 03/10/2022 Type 2 diabetes mellitus without complication, with long-term current use of insulin MICROALBUMIN URINE RANDOM Routine 12/03/2021 11:03 AM ROUGH AND TRUING MACHINE OPERATOR Well adult exam Type 2 diabetes mellitus [...] if suspicious findings are present clinically. An [employer] certified facility. [facility] utilize [employer] as a reminder system to notify patients of their next recommended mammograms. > Interpreting Provider: Hossein Spring MD on 01/23/2024 3:40 PM Shannan Richard Quick PA-C MAMMO ORDPretty [place] * (ABNORMAL) COMPREHENSIVE METABOLIC PANEL (08/05/2023 4:49 AM [facility]) Glucose 99 70 - 125 mg/dL 08/05/2023 5:17 AM [facility] Sodium 143 136 - 145 mmol/L 08/05/2023 5:17 AM [facility] Potassium 3.5 3.4 - 5.1 mmol/L 08/05/2023 5:17 AM [facility] Chloride 108(H) 98 - 107 mmol/L 08/05/2023 5:17 AM [facility] CO2 27 22 - 29 mmol/L 08/05/2023 5:17 AM [facility] Calcium 9.35 8.4 - 10.2 mg/dL 08/05/2023 5:17 AM [facility] Anion Gap 12 6 - 16 mmol/L 08/05/2023 5:17 AM [facility] BUN 14.8 9.8 - 20.1 mg/dL 08/05/2023 5:17 AM [facility] Creatinine 0.94 0.57 - 1.11 mg/dL 08/05/2023 5:17 AM [facility] Alkaline Phosphatase 87 40 - 150 U/L 08/05/2023 5:17 AM [facility] ALT 18 <=55 U/L 08/05/2023 5:17 AM [facility] AST 21 5 - 34 U/L 08/05/2023 5:17 AM [facility] Protein Total 6.6 6.4 - 8.3 gm/dL 08/05/2023 5:17 AM [facility] Albumin 3.8 3.4 - 4.8 gm/dL 08/05/2023 5:17 AM [facility] Globulin Total 2.8 2.6 - 4.0 gm/dL 08/05/2023 5:17 AM [facility] Albumin/Globulin Ratio 1.4 0.9 - 1.6 08/05/2023 5:17 AM [facility] Bilirubin Total 0.4 0.2 - 1.2 mg/dL 08/05/2023 5:17 AM [facility] eGFR 68(L) >90 mL/min/1.7 3m2 08/05/2023 5:17 AM [facility] Comment:The GFR result was c alculated using the updated CKD-EPI Creatinine Equation (2020). Blood BLOOD SPECIMEN / Unknown Venipuncture / Unknown 08/05/2023 4:49 AM ROUGH AND TRUING MACHINE OPERATOR 08/05/2023 4:54 AM ROUGH AND TRUING MACHINE OPERATOR Herb Buchanan MD LAB - CHEMISTRY OR DERABLES Performing Organization Address City/[facility]/ZIP Co de Phone Number [facility] [address] * (ABNORMAL) HEMOGLOBIN A1C - POINT OF CARE (AMB) [facility] (03/10/2022) [facility] Hemoglobin A1c POCT 7.6(A) 4.2 - 5.8 % [facility] QC Verified Yes Yes [facility] Blood BLOOD SPECIMEN / Unknown 03/10/2022 Nadine Walls PA-C LAB - POINT OF CARE ORDERABLES Performing Organization Address City/[facility] Co de Phone Number [facility] [address] [phone] * (ABNORMAL) MICROALBUMIN URINE RANDOM (12/03/2021 11:03 AM ROUGH AND TRUING MACHINE OPERATOR) [facility] Microalbumin Urine 100.0(H) 0.0 - 20.0 mg/dL 12/03/2021 1:32 PM ROUGH AND TRUING MACHINE OPERATOR [facility] Urine URINE SPECIMEN OBTAINED BY CLEAN CATCH PROCEDURE / Unknown Collection / Unknown 12/03/2021 11:03 AM ROUGH AND TRUING MACHINE OPERATOR 12/03/2021 12:48 PM ROUGH AND TRUING MACHINE OPERATOR Nadine Walls PA-C LAB - URINE CHEMISTR Y ORDERABLES [facility] [address] [place] [address], [facility] from Last 3 Months or Most Recently Relevant to Health Maintenance Care Teams Pelletising Extruder Operator Relationship Specialty Start Date End Date Shannan Acevedo PA-C [facility] Primary Care [address] [place] [id number] PCP - General Physician [employer] Consultant 09/22/22
--- OUTSIDE RECORDS SUMMARY | 2025-01-01 12:51 | XMS_ITS | Clinical Summary ---
Author Organization [facility] Address [address] [place] [address] Care Team Providers Care Reinforcing Steel Erector Name Role Phone Adolfo Su MD Primary Care Provider [phone] Allergies Active Allergy Reactions Criticality Noted Date [...] 08/03/2020 Assessment & Plan (08/03/2020 4:35 PM MUFFLE OPERATOR): Pap smear and breast exam done. Schedule DEXA Return in one year. Candidal vulvovaginitis 08/03/2020 Assessment & Plan (08/03/2020 4:35 PM MUFFLE OPERATOR): Diflucan 150 po today and repeat in [...] on file Legal Sex Female 1:37 PM MUFFLE OPERATOR Gender Identity Not on file Sexual Orientation [...] Comments Blood Pressure 124/82 07/28/2020 3:43 PM MUFFLE OPERATOR Pulse - - Temperature - - Respiratory Rate - - Oxygen Saturation - - Inhaled Oxygen Concentration - - Weight 88.5 kg (195 lb) 07/28/2020 3:43 PM MUFFLE OPERATOR Height 165.1 cm (5' 5 ) 07/28/2020 3:43 PM MUFFLE OPERATOR Body Mass Index 32.45 07/28/2020 3:43 PM MUFFLE OPERATOR Plan of Treatment Not on file Insurance CHOICE [facility] [place] [facility] [employer] [place] CHO[place] Care Teams Reinforcing Steel Erector Relationship Specialty Start Date End Date Adolfo Su MD PCP - General 02/15/18
[2025-01-01 13:29] VITALS: BP 125/87; PULSE 74; RESP 18; O2SAT 100
[2025-01-01 14:16] LABS: Glucose Point of Care 290 mg/dl (65-105)
== END 2025-01-01 16:22 | disposition home or self-care (01) ==
PROVIDERS: Physician Assistant; Emergency Provider Emergency Medicine
DX: E11.65 Type 2 diabetes mellitus with hyperglycemia (principal); I10 Essential (primary) hypertension; K21.9 Gastro-esophageal reflux disease without esophagitis; F41.9 Anxiety disorder, unspecified
CPT/HCPCS: 36415; 80053; 81003; 82010; 82948; 83735; 84100; 85025; 96360; 96361; 99283; J7030